=== PATIENT | female | born 1965 | race Caucasian/White ===

== ENCOUNTER 2018-03-04 11:30 | Emergency (ER) | payer BC ==
[2018-03-04 11:42] VITALS: BP 165/88
--- NOTE | 2018-03-04 11:49 | EDPHY ---
H & P Stated Complaint: tripped 4 days ago R knee pain Source: Patient Exam Limitations: No limitations - Personal History LMP (Females 10-55): IUD In [address] - Medical/Surgical History Hx Asthma: No Hx Chronic Respiratory Disease: No Hx Diabetes: No Hx Cardiac Disease: No Hx Renal Disease: No Hx Cirrhosis: No Hx Alcoholism: No Hx HIV/AIDS: No Hx Splenectomy or Spleen Trauma: No Other PMH: depression. elda - Social History Smoking Status: Never smoked Time Seen by Provider: 03/04/18 11:48 HPI/ROS: HPI: This is a 52-year-old female who presents with Chief Complaint: tripped 4 days ago R knee pain Location: Right anterior knee Quality: Injury Duration: 4 days ago Signs and Symptoms: No bleeding, no radiation, no numbness, no weakness, no tingling, no incontinence, + decreased range of motion, no swelling, + pain, no fever Timing: Acute, constant, worse with use Severity: Moderate Context: Patient reports that she was caring package is into her daughter and son-in-law as home 4 days ago when she tripped over the edging by the [employer]. She fell directly on her right anterior knee. She reports that she felt immediate, constant, moderate nonradiating pain. She is able to get up on her own and ambulate with some mild discomfort. Since that time she has had increased anterior right knee pain and gave out yesterday with her falling to the ground again. She reports that it throbs at night and she is unable to sleep. Denies LOC/head injury/neck pain/dizziness/nausea/vomiting/amnesia. IUD in place. Modifying Factors: Ice pack and [id number] pain medications with mild relief Comment: ROS: A comprehensive 10 system review of systems is otherwise negative aside from elements mentioned in the history of present illness. MEDICAL/SURGICAL/SOCIAL HISTORY: Medical history: Depression Surgical history: Cholecystectomy Social history: Nonsmoker. Works for [employer] CONSTITUTIONAL: Obese, pleasant elderly white female, awake and alert, no obvious distress HEENT: Atraumatic and normocephalic. NECK: supple Cardiovascular: Normal S1/S2, regular rate, regular rhythm, without murmur rub or gallop. PULMONARY/CHEST: Symmetrical and nontender. no crepitus. Clear to auscultation bilaterally. Good air movement. No accessory muscle usage. ABDOMEN: Soft, nondistended, nontender. EXTREMITIES: 2/2 pulses, strength 5/5, right KNEE: mild suprapatellar effusion , mild medial and lateral joint line tenderness, full extension to 180, flexion to 120. No pain with varus and valgus exam. Mild pain with anterior drawer or posterior drawer test. Extensor mechanism intact. DIP/PIP/MCP flexion/ extension intact with good light touch sensation. no deformities, no clubbing, no cyanosis or edema. NEUROLOGICAL: no focal neuro deficits. GCS 15. Light touch sensation intact. SKIN: Warm and dry, no erythema. no rash. Good capillary refill. (Antonieta Betts) Constitutional: Initial Vital Signs Temperature (C) 36.5 C 03/04/18 11:40 Heart Rate 99 03/04/18 11:40 Respiratory Rate 16 03/04/18 11:40 Blood Pressure 165/88 H 03/04/18 11:40 O2 Sat (%) 97 03/04/18 11:40 O2 Delivery Mode Room Air Allergies/Adverse Reactions: morphine Allergy (Verified 03/04/18 11:39) Home Medications: Medication Instructions Recorded Lamictal 03/04/18 Wellbutrin Sr 03/04/18 oxyCODONE/APAP 5/325 [Percocet 1 - 2 tab PO Q4H PRN #10 tab 03/04/18 5/325 (*)] Medical Decision Making Procedures: Procedure: Splint placement. A right knee immobilizer and Girma wrap were applied by the Emergency Room sales support technician. After application of the splint I returned and re-examined the patient. The splint was adequately immobilizing the joint and distal to the splint the patient's circulation and sensation was intact. (Antonieta Betts) ED Course/Re-evaluation: Right knee x-ray ordered Suspect internal derangement and sprain of ACL X-ray my read shows no fracture, dislocation. Mild degenerative changes noted. Placed in knee immobilizer with orthopedic follow-up for outpatient MRI No signs of neurovascular compromise/tenting of skin/compartment syndrome/ extremities and joints examined above and below area of concern and are neurovascularly intact. This patient was seen under the supervision of my secondary supervising physician. I evaluated care for this patient independently. Discussed this patient with Dr. Ryan who did not see the patient. (Antonieta Betts) The patient was evaluated and managed by the physician captain assistant. I have reviewed this chart and I agree with the findings and plan of care as documented , as indicated by my signature. I am the secondary supervising physician. ( Eileen Ryan) Differential Diagnosis: Knee injury while [] including but not limited to fracture, ACL injury, contusion, muscular strain, and meniscus injury. (Antonieta Betts) Departure - Departure Disposition: Home, Routine, Self-Care Clinical Impression: Sprain of collateral ligament of right knee Condition: Good Instructions: Knee Sprain (ED), Knee Immobilizer (ED) Additional Instructions: Wear the knee immobilizer while out of bed until pain free or seen by Orthopedics. Take Tylenol 650 mg every 4 hours and/or Ibuprofen 600 mg every 8 hours with food as needed for pain. Use Percocet every 6 hours as needed for severe/break through pain. Do not use Tylenol and Percocet concomitantly. Apply ice for 30 minutes at a time; 2-3 times per day for the next 1-2 days. Follow up with Orthopedics in 5-7 days if symptoms persist at which time they will evaluate and recommend with you if conservative management versus MRI of the knee is indicated. The x-rays obtained in the emergency department today demonstrate no evidence of an obvious fracture. Sometimes fractures are not obvious on the initial set of x-rays performed in the ED. For this reason, you should have repeat x-rays performed in 7-10 days if you are having any pain exclude the possibility of an occult fracture. Referrals: [facility] [Other] - As per Instructions César Queen MD [Medical Doctor] - As per Instructions Prescriptions: oxyCODONE/APAP 5/325 [Percocet 5/325 (*)] 1 - 2 tab PO Q4H PRN #10 tab PRN Reason: Pain, Severe
== END 2018-03-04 13:04 | disposition home or self-care (01) ==
DX: S83.401A Sprain of unspecified collateral ligament of right knee, initial encounter (principal); W01.0XXA Fall on same level from slipping, tripping and stumbling without subsequent striking against object, initial encounter; Y92.9 Unspecified place or not applicable; Y93.9 Activity, unspecified; Y99.9 Unspecified external cause status
CPT/HCPCS: L1830